=== PATIENT | male | born 1955 | race Caucasian/White ===

== ENCOUNTER → 2017-01-04 | Outpatient (CLI) | payer MEDICARE ==
[~2017-01-04] MED LIST: ADULT LOW DOSE81 MG PO; CEPHALEXIN500 M1 PO; DILAUDID 2MG TAB2 MG PO; DILAUDID4 M1 PO; ERGOCALCIFER50000 IU PO; NEURONTIN300 MG/CAP PO; NORVASC 10MG10 MG PO; PROAIR RESPICL90 MCG INH; RESTORIL30 M1 PO; RITALIN LA20 MG PO; VALIUM10 M1 PO
== END ==
LOC: LAB 08:59
DX: C67.9 Malignant neoplasm of bladder, unspecified (principal); I25.10 Atherosclerotic heart disease of native coronary artery without angina pectoris

== ENCOUNTER → 2017-09-16 | Outpatient (CLI) | payer MEDICARE ==
[2015-12-31 12:30] VITALS: BP 123/75
[2017-09-16 17:12] LABS: HEMATOCRIT 45.7 % (42.0-52.0); HEMOGLOBIN 15.3 g/dL (13.5-18.0); MEAN CELL VOLUME 96 fl (78-100); MEAN CORPUSCULAR HEMOGLOBIN 32 pg (27-31); MEAN CORPUSCULAR HGB CONC 34 g/dL (33-37); MEAN PLATELET VOLUME 9.6 fl (7.4-10.4); PLATELET COUNT 210 K/mm3 (130-400); RED BLOOD COUNT 4.76 M/mm3 (4.20-5.60); RED CELL DISTRIBUTION WIDTH 12.9 % (11.5-14.5); WHITE BLOOD COUNT 6.1 K/mm3 (4.8-10.8)
[2017-09-16 17:28] LABS: ALBUMIN 4.2 g/dL (3.5-5.0); BUN/CREATININE RATIO 15.8 (6.0-26.0); CALCIUM 9.5 mg/dL (8.4-10.2); POTASSIUM 4.1 mmol/L (3.6-5.0); TOTAL BILIRUBIN 0.8 mg/dL (0.2-1.3)
[2017-09-16 17:46] LABS: LYMPHOCYTE 30 % (20-51); MONOCYTE 8 % (3-10); NEUTROPHILS 44 % (42-75)
== END ==
LOC: LAB 16:45
PROVIDERS: Internal Medicine
DX: G35 Multiple sclerosis (principal); C67.9 Malignant neoplasm of bladder, unspecified; R20.2 Paresthesia of skin; G89.29 Other chronic pain

== ENCOUNTER → 2018-02-24 | Outpatient (CLI) | payer MEDICARE, BC ==
[~2018-02-24] VITALS: Ht 188 cm; Wt 66.8 kg
[~2018-02-24] MED LIST changes: +LEVOTHYROXINE0.2 MG PO; +NATURAL ST. JO300 MG PO
[2018-02-24 15:28] VITALS: BP 110/75
[2018-02-24 16:05] LABS: EOS # 0.4 (0.04-0.40); EOS % 4.9 % (0.0-4.0); HEMATOCRIT 45.2 % (42.0-52.0); HEMOGLOBIN 15.1 g/dL (13.5-18.0); LYMPH# 1.7 (1.50-4.00); MEAN CELL VOLUME 94 fl (78-100); MEAN CORPUSCULAR HEMOGLOBIN 32 pg (27-31); MEAN CORPUSCULAR HGB CONC 33 g/dL (33-37); MEAN PLATELET VOLUME 9.5 fl (7.4-10.4); MONO # 0.5 (0.20-0.80); NEU # 4.7 (1.40-6.50); PLATELET COUNT 206 K/mm3 (130-400); RED BLOOD COUNT 4.79 M/mm3 (4.20-5.60); RED CELL DISTRIBUTION WIDTH 13.3 % (11.5-14.5); WHITE BLOOD COUNT 7.3 K/mm3 (4.8-10.8)
[2018-02-24 16:13] LABS: BUN/CREATININE RATIO 20.2 (6.0-26.0); CALCIUM 9.6 mg/dL (8.4-10.2); POTASSIUM 4.6 mmol/L (3.6-5.0); TOTAL BILIRUBIN 0.7 mg/dL (0.2-1.3)
[2018-02-24 17:27] LABS: ERYTHROCYTE SEDIMENTATION RATE 0 mm/hr (0-20)
[2018-02-25 00:32] LABS: TESTOSTERONE 646 ng/dL (221-716)
== END ==
LOC: AMSURD 15:01
PROVIDERS: Internal Medicine
DX: R06.09 Other forms of dyspnea (principal); Z12.11 Encounter for screening for malignant neoplasm of colon; Z12.5 Encounter for screening for malignant neoplasm of prostate; C67.9 Malignant neoplasm of bladder, unspecified; F31.89 Other bipolar disorder; G35 Multiple sclerosis; N52.9 Male erectile dysfunction, unspecified